=== PATIENT | male | born 1970 | race Two or more races ===

== ENCOUNTER 2019-05-26 09:42 | Outpatient (CLI) | payer OTHER | END 2019-05-26 15:00 | disposition home or self-care (01) | LOC: LAB SALUS 09:42 | DX: Z13.220 Encounter for screening for lipoid disorders (principal); Z13.1 Encounter for screening for diabetes mellitus; Z11.4 Encounter for screening for human immunodeficiency virus [HIV]; Z72.51 High risk heterosexual behavior; Z11.3 Encounter for screening for infections with a predominantly sexual mode of transmission; Z12.11 Encounter for screening for malignant neoplasm of colon ==